=== PATIENT | male | born 1965 | race African-American/Black ===

== ENCOUNTER 2017-11-11 07:05 | Day surgery (SDC) | payer BC ==
[~2017-11-11] VITALS: Ht 177.8 cm; Wt 78.0 kg
[2017-11-11] MEDS ORDERED: MEPERIDINE HCL/PF 100 MG/ML AMP ONE (08:48)
[2017-11-11] MEDS ORDERED: SIMETHICONE 40 MG/0.6 ML ML ONE (08:48)
[2017-11-11] MEDS ORDERED: GLYCOPYRROLATE 0.2 MG/ML VIAL ONE (08:49)
[2017-11-11] MEDS: MIDAZOLAM HCL 5 MG/5 ML VIAL ONE ×2 (08:55→08:57)
[2017-11-11 11:24] VITALS: BP_SYST 99
== END 2017-11-11 10:40 | disposition home or self-care (01) ==
LOC: SDS 07:05 → SMU 07:05 → SDS 10:40
PROVIDERS: ATTEND Colon & Rectal Surgery
DX: Z12.11 Encounter for screening for malignant neoplasm of colon (principal); H40.003 Preglaucoma, unspecified, bilateral; H25.093 Other age-related incipient cataract, bilateral; J06.9 Acute upper respiratory infection, unspecified; Z98.890 Other specified postprocedural states; Z90.89 Acquired absence of other organs; Z91.09 Other allergy status, other than to drugs and biological substances; Z79.899 Other long term (current) drug therapy
CPT/HCPCS: 45378; J2175; J2250; J7030; J3490